=== PATIENT | female | born 1990 ===

== ENCOUNTER 2016-06-02 09:44 | Emergency (ER) | payer OTHER ==
[~2016-06-02] VITALS: Ht 172.7 cm; Wt 54.0 kg
[2016-06-02 09:47] VITALS: Ht 172.7 cm; Wt 54.0 kg
[2016-06-02] MEDS ORDERED: AMOX1TAB10 PO (10:17)
[2016-06-02] MEDS ORDERED: SODI126M NASAL (10:17)
[2016-06-02] MEDS ORDERED: IBUP-1542 PO (10:17)
--- NOTE | 2016-06-02 10:29 | ERD ---
ER Documentation Chief Complaint Date/Time DATE: 06/02/16 TIME: 10:20 Chief Complaint BILATERAL EYE PAIN, HEADACHE X 8 DAYS HPI 25-year-old female complaining of sinus headache 8 days. Patient states that she had cough and nasal congestion for the past 2 weeks. Patient states that she has purulent nasal discharge, had subjective fever last night, and measured fever 2 days ago of 101. Denies shortness of breath. Denies nausea vomiting. ROS All systems reviewed and are negative except as per history of present illness. Medications Home Meds Active Scripts Sodium Chloride (Saline Nasal Mist) 126 Ml Mist, 2 SPRAY NASAL Q2H Y for NASAL CONGESTION, #1 BOTTLE Prov:MUNIRA ALCARAZ. CREOSOTING ENGINEER 06/02/16 Ibuprofen* (Motrin*) 600 Mg Tab, 600 MG PO Q6H Y for PAIN AND OR ELEVATED TEMP, #30 TAB Prov:MUNIRA ALCARAZ. CREOSOTING ENGINEER 06/02/16 Amoxicillin/Potassium Clav (Amox-Clav 875-125 mg Tablet) 875-125 mg Tab, 1 TAB PO BID for 5 Days, #14 TAB Prov:MUNIRA ALCARAZ. CREOSOTING ENGINEER 06/02/16 PMhx/Soc Medical and Surgical Hx: pt denies Medical Hx History of Surgery: No Anesthesia Reaction: No Hx Neurological Disorder: No Hx Respiratory Disorders: No Hx Cardiac Disorders: No Hx Psychiatric Problems: No Hx Miscellaneous Medical Probl: No Hx Alcohol Use: No Hx Substance Use: No Hx Tobacco Use: No Smoking Status: Never smoker Physical Exam Vitals Vital Signs Date Time Temp Pulse Resp B/P Pulse Ox O2 Delivery O2 Flow Rate FiO2 06/02/16 09:47 97.4 81 18 118/71 100 Physical Exam General impression: Well-developed, well-nourished, 25-year-old female, alert, oriented, in no acute distress Head: Normocephalic, atraumatic. Eyes: PERRL, EOM normal. Conjunctiva not injected. ENT: External canals clear. TM's pearly lin. Clear fluids noted behind right TM. Nasal mucosa erythematous and swollen. Oral mucosa and oropharynx are normal. Bilateral frontal and maxillary sinuses tender to percussion. Neck: Supple, nontender. No lymphanopathy. No nuchal rigidity. Respiration: Normal respiratory effort. Lungs clear to auscultate bilaterally. No wheezes, rales or rhonchi. Cardiovascular: Regular rate and rhythm. No murmurs or extra heart sounds. Neuro: Mental status normal, speech normal. OPTOMETRIC TECHNOLOGIST II-XII intact. Normal sensation and strength in all 4 extremities. No focal weakness noted. Skin: Normal turgor. No rash or lesions. Psych: Normal mood and affect. Procedures/MDM Patient is afebrile, in no respiratory distress. Lungs are clear to auscultate. I doubt that patient has pneumonia or bronchitis. Likely patient's symptoms are result of viral upper respiratory infection. Patient also appeared to have acute sinusitis, also likely to be viral. However, since patient's symptoms have persisted for more than 8 days, patient also reports fever. Augmentin will be prescribed for the patient. Patient appears well, stable for discharge and outpatient management. Medical decision making shared with patient and family. Education provided to patient and family. Patient and family expressed understanding of the plan. Medications on discharge: Augmentin, ibuprofen, saline nasal spray. Follow-up: Primary care provider in 2-3 days or return to ED if worse. Departure Diagnosis: Primary Impression: URI (upper respiratory infection) URI type: acute nasopharyngitis (common cold) Qualified Code: J00 - Acute nasopharyngitis Additional Impression: Sinusitis, acute Sinusitis location: frontal Recurrence: non-recurrent Qualified Code: J01.10 - Acute non-recurrent frontal sinusitis Patient Instructions: Kid Care: Colds, Sinusitis, Abx Tx Referrals: [facility] YOU HAVE RECEIVED A MEDICAL SCREENING EXAM AND THE RESULTS INDICATE THAT YOU DO NOT HAVE A CONDITION THAT REQUIRES URGENT TREATMENT IN THE EMERGENCY DEPARTMENT. FURTHER EVALUATION AND TREATMENT OF YOUR CONDITION CAN WAIT UNTIL YOU ARE SEEN IN YOUR DOCTORS OFFICE WITHIN THE NEXT 1-2 DAYS. IT IS YOUR RESPONSIBILITY TO MAKE AN APPOINTMENT FOR FOL-UP CARE. IF YOU HAVE A PRIMARY DOCTOR --you should call your primary doctor and schedule an appointment IF YOU DO NOT HAVE A PRIMARY DOCTOR YOU CAN CALL OUR PHYSICIAN REFERRAL HOTLINE AT IF YOU CAN NOT AFFORD TO SEE A PHYSICIAN YOU CAN CHOSE FROM THE FOLLOWING [facility] [address] [facility]. [facility] [address] [facility] [address] [facility] [facility] [address] [facility]. [facility] [address] [facility] [address] Additional Instructions: Call your primary care doctor TOMORROW for an appointment during the next 2-3 days.See the doctor sooner or return here if your condition worsens before your appointment time. MUNIRA ALCARAZ NP Jun 02, 2016 10:29
[2016-06-02 10:36] VITALS: BP 120/71; PULSE 78; RESP 16; TEMP 98.4
== END 2016-06-02 10:36 | disposition home or self-care (01) ==
LOC: FTE 09:44
DX: J00 Acute nasopharyngitis [common cold] (principal); J01.10 Acute frontal sinusitis, unspecified
CPT/HCPCS: 99283